=== PATIENT | female | born 1985 | race Hispanic/Latino ===

== ENCOUNTER 2023-12-06 03:09 | Emergency (ER) | payer OTHER ==
--- OUTSIDE RECORDS SUMMARY | 2023-12-06 03:14 | XMS REPORT | Continuity of Care Document ---
Author Name Unknown Address [address] [facility] [place] [address] [facility] Address [address] [facility] [place] [address] Care Team Providers Care Coin Box Collector Name Role Phone SLOANE GARIBAY Attending Clinician Unavailable WANDER PELAEZ Attending Clinician Unavailable LAB90 Attending Clinician Unavailable MD BRYNN Attending Clinician Unavailab ANTONIA Martinez Attending Clinician Unavailable [id number] Attending Clinician Unavailable LAB47 Attending Clinician Unavailable Payers Payer Name Policy Type Policy Number Effective Date Expirati on Date Source ANITA [facility] 2020 9 [id number] 00:00:00 Problems Condition Name Condition Details Condition Category Status Onset Date Resolution Date Last Treatment Date Treating Clinician Comments Source Vitamin D deficiency Vitamin D deficiency Disease Active 2021-06 00:00: 00 Neeta Rivas - Externa l Primary hypertensi on Primary hypertensi on Disease Active 2021-06 00:00: 00 Neeta Rivas - Externa l 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 recurrent major depressive disorder Disease Active 2021-06 00:00: 00 Neeta Rivas - Externa l Gastroesop hageal reflux disease without esophagiti s Gastroesop hageal reflux disease without esophagiti s Disease Active 2021-06 00:00: 00 Neeta Rivas - Externa l Social History Social Habit Start Date Stop Date Quantity Comments Source Sexual orientation 2022-05-06 10:43:01 Neeta Rivas - External Gender identity 2020-08-21 17:52:28 Identifies as female gender (finding) Neeta Rivas - External Alcoholic beverage intake 2023-11-19 00:00:00 2023-11-19 00:00:00 Current drinker of alcohol (finding) Neeta Rivas - External Alcohol intake 2023-08-12 00:00:00 2023-08-12 00:00:00 Current drinker of alcohol (finding) Neeta Rivas - External History of Social function 2023-03-02 00:00:00 2023-03-02 00:00:00 Neeta Rivas - External Tobacco use and exposure 2023-01-14 00:00:00 2023-01-14 00:00:00 Smokeless tobacco non-user Neeta Rivas - External Sex [birth year] at 1985 00:00:00 1985 00:[birth year]:00 F Neeta Rivas - External Smoking Status Start Date Stop Date Source Never smoked tobacco Neeta Rivas - External Medications Ordered Medication Name Filled Medication Name Start Date Stop Date Current Medication? Ordering Clinician Indication Dosage Frequency Signature (SIG) Comments Components Source hydroCHLORO thiazide 25 MG oral Tablet 11-18 00:00: 00 Yes [id number] 25mg Take 1 tablet (25 mg total) by mouth daily. Neeta boyd Losartan Potassium (COZAAR) 50 MG oral Tablet 11-18 00:00: 00 Yes [id number] 50mg Take 1 tablet (50 mg total) by mouth daily. Neeta boyd Tirzepatide -Weight Management 2.5 MG/0.5ML subcutaneou s Solution Auto-inject or 11-18 00:00: 00 Yes [id number] 2.5mg Inject 0.5 mL (2.5 mg total) into the skin once a week. Neeta boyd Azithromyci n (Zithromax) 500 MG oral Tablet 01-19 00:00: 00 02-10 00:00 :00 No [id number] 1000mg Take 2 tablets (1,000 mg total) by mouth once for 1 dose Neeta boyd Semaglutide -Weight Management (Wegovy) 1 MG/0.5ML subcutaneou s Solution Auto-inject or 18 00:00: 00 01-14 00:00 :00 No [id number] 1mg Inject 1 mg into the skin once a week Neeta boyd Cholecalcif karmen (Vitamin D3) 75 MCG (3000 UT) oral Tablet 10-05 00:00: 00 11-18 00:00 :00 No [id number] 1{tbl} Take 1 tablet by mouth daily Neeta boyd Semaglutide (1 mg/dose) 2 mg/1.5 mL SQ Solution Pen-Injecto r 10-01 00:00: 00 Yes [id number] 1mg Inject 1 mg into the skin once a week Neeta boyd Valsartan 80 MG oral Tablet 10-01 00:00: 00 11-18 00:00 :00 No [id number] 80mg Take 1 tablet (80 mg total) by mouth daily Neeta boyd hydroCHLORO thiazide 25 MG oral Tablet 10-01 00:00: 00 11-18 00:00 :00 No [id number] 25mg Take 1 tablet (25 mg total) by mouth daily Neeta boyd Valsartan 80 MG oral Tablet 09-22 00:00: 00 10-01 00:00 :00 No [id number] TAKE ONE (1) TABLET(S) BY MOUTH DAILY. Neeta boyd OZEMPIC (0.25 or 0.5 mg/dose) 2 mg/3 mL SQ Solution Pen-Injecto r 09-16 00:00: 00 10-01 00:00 :00 No Neeta boyd Semaglutide (0.25 or 0.5 mg/dose) 2 mg/1.5 mL SQ Solution Pen-Injecto r - 00:00: 10-01 00:00 :00 No [id number] .5mg Inject 0.5 mg into the skin once a week Neeta boyd Pantoprazol e Sodium 20 MG oral Tablet Delayed Response 08-20 00:00: 00 Yes [id number] TAKE ONE (1) TABLET(S) BY MOUTH DAILY. Neeta boyd hydroCHLORO thiazide 25 MG oral Tablet 08-20 00:00: 00 10-01 00:00 :00 No [id number] TAKE ONE (1) TABLET(S) BY MOUTH ONCE A DAY. Neeta boyd Valsartan 80 MG oral Tablet 08-05 00:00: 00 Yes [id number] 80mg Take 1 tablet (80 mg total) by mouth daily Neeta boyd Bupropion HCL XL 150 MG OR TB24 08-05 00:00: 00 Yes [id number] 300mg Take 2 tablets (300 mg total) by mouth every morning Neeta boyd Ondansetron (ZOFRAN) 4 MG oral TABLET DISPERSIBLE 08-05 00:00: 00 01-14 00:00 :00 No [id number] 4mg [id number] 3D Take 1 tablet (4 mg total) by mouth every 8 hours as needed for nausea Neeta boyd hydroCHLORO thiazide 25 MG oral Tablet 07-21 00:00: 00 Yes [id number] 25mg Take 1 tablet (25 mg total) by mouth daily Neeta boyd Magnesium 500 MG oral Capsule 07-21 00:00: 00 Yes Neeta boyd Vitamin D-Vitamin K (K2-D3 10,000) oral Capsule 07-21 00:00: 00 Yes Neeta boyd Valsartan 40 MG oral Tablet 30 00:00: 00 08-05 00:00 :00 No [id number] 40mg Take 1 tablet (40 mg total) by mouth daily Neeta boyd Semaglutide (0.25 or 0.5 mg/dose) 2 mg/1.5 mL SQ Solution Pen-Injecto r 07-08 00:00: 00 Yes [id number] .25mg Inject 0.25 mg into the skin once a week Neeta boyd Lisinopril 10 MG oral Tablet 07-08 00:00: 00 Yes [id number] 10mg Take 1 tablet (10 mg total) by mouth daily Neeta boyd Pantoprazol e Sodium 20 MG oral Tablet Delayed Response 2021-06 00:00: 00 Yes [id number] 20mg Take 1 tablet (20 mg total) by mouth daily Neeta boyd hydroCHLORO thiazide 25 MG oral Tablet 2021-06 00:00: 00 Yes [id number] 25mg Take 1 tablet (25 mg total) by mouth daily Neeta boyd Bupropion HCL XL 150 MG OR TB24 2021-06 00:00: 00 08-05 00:00 :00 No [id number] 300mg Take 2 tablets (300 mg total) by mouth every morning Neeta boyd Vitamin D, Ergocalcife rol, 1.25 MG (65919 UT) oral Capsule 2021-06 00:00: 00 Yes [id number] 32528V Take 1 capsule (50,000 units total) by mouth once a week Neeta boyd hydroCHLORO thiazide 12.5 MG oral Capsule 2021-06 00:00: 00 Yes [id number] 12.5mg Take 1 capsule (12.5 mg total) by mouth daily Neeta boyd Bupropion HCL XL 150 MG OR TB24 2021-06 00:00: 00 Yes [id number] 150mg Take 1 tablet (150 mg total) by mouth daily Neeta boyd Pantoprazol e Sodium 20 MG oral Tablet Delayed Response 2021-06 00:00: 00 Yes [id number] 20mg Take 1 tablet (20 mg total) by mouth daily Neeta boyd Amlodipine Besylate 10 MG oral Tablet 2020-06 00:00: 00 05-13 00:00 :00 No Neeta Seybold - Externa l Immunizations Ordered Immunization Name Filled Immunization Name Date Status Comments Source Influenza Virus Vaccine, age 6 months and up 2022 00:00:00 Completed Neeta Seybold - External Influenza Virus Vaccine, age 6 months and up 2022 00:00:00 Completed Neeta Seybold - External Influenza Virus Vaccine, age 6 months and up 2022 00:00:00 Completed Neeta Seybold - External Influenza Virus Vaccine, age 6 months and up 2022 00:00:00 Completed Neeta Seybold - External Influenza Virus Vaccine, age 6 months and up 2022 00:00:00 Completed Neeta Seybold - External Influenza Virus Vaccine, age 6 months and up 2022 00:00:00 Completed Neeta Seybold - External Influenza Virus Vaccine, age 6 months and up 2022 00:00:00 Completed Neeta Seybold - External Influenza Virus Vaccine, age 6 months and up 2022 00:00:00 Completed Neeta Seybold - External Influenza Virus Vaccine, Unspecified Formulation 2021-06-09 00:00:00 Completed Neeta Seybold - External Influenza Virus Vaccine, Unspecified Formulation 2021-06-09 00:00:00 Completed Neeta Seybold - External Influenza Virus Vaccine, Unspecified Formulation 2021-06-09 00:00:00 Completed Neeta Seybold - External Influenza Virus Vaccine, Unspecified Formulation 2021-06-09 00:00:00 Completed Neeta Seybold - External Influenza Virus Vaccine, Unspecified Formulation 2021-06-09 00:00:00 Completed Neeta Seybold - External Influenza Virus Vaccine, Unspecified Formulation 2021-06-09 00:00:00 Completed Neeta Seybold - External Influenza Virus Vaccine, Unspecified Formulation 2021-06-09 00:00:00 Completed Neeta Seybold - External Influenza Virus Vaccine, Unspecified Formulation 2021-06-09 00:00:00 Completed Neeta Seybold - External Covid-19 Vaccine Moderna (Spikevax), Mrna-lnp, Todd Protein, Pf 2020-09-20 00:00:00 Completed Neeta Seybold - External Covid-19 Vaccine Moderna (Spikevax), Mrna-lnp, Todd Protein, Pf 2020-09-20 00:00:00 [facility] (S[facility]), Mrna-lnp, Todd Protein, Pf 2020-09-20 00:00:00 Completed [facility] - External Covid-19 Vaccine Moderna (Spikevax), Mrna-lnp, Todd Protein, Pf 2020-09-20 00:00:00 Completed [facility] - External Covid-19 Vaccine Moderna (Spikevax), Mrna-lnp, Todd Protein, Pf 2020-09-20 00:00:00 Completed [facility] - External Covid-19 Vaccine Moderna (Spikevax), Mrna-lnp, Todd Protein, Pf 2020-09-20 00:00:00 Completed [facility] - External Covid-19 Vaccine Moderna (Spikevax), Mrna-lnp, Todd Protein, Pf 2020-09-20 00:00:00 Completed [facility] - External Covid-19 Vaccine Moderna (Spikevax), Mrna-lnp, Todd Protein, Pf 2020-09-20 00:00:00 Completed [facility] - External Covid-19 Vaccine Moderna (Spikevax), Mrna-lnp, Todd Protein, Pf 2020-09-20 00:00:00 Completed [facility] - External Covid-19 Vaccine Moderna (Spikevax), Mrna-lnp, Todd Protein, Pf 2020-08-23 00:00:00 Completed [facility] - External Covid-19 Vaccine Moderna (Spikevax), Mrna-lnp, Todd Protein, Pf 2020-08-23 00:00[facility]00 [facility] (S[facility]), Mrna-lnp, Todd Protein, Pf 2020-08-23 00:00:00 Completed Neeta Seold - External Covid-19 Vaccine Moderna (Spikevax), Mrna-lnp, Todd Protein, Pf 2020-08-23 00:00:00 [facility] Moderna (Spikevax), Mrna-lnp, Todd Protein, Pf 2020-08-23 00:00:00 Completed Neeta Seybold - External Covid-19 Vaccine Moderna (Spikevax), Mrna-lnp, Todd Protein, Pf 2020-08-23 00:00:00 Completed Neeta Seybold - External Covid-19 Vaccine Moderna (Spikevax), Mrna-lnp, Todd Protein, Pf 2020-08-23 00:00:00 Completed Neeta Seybold - External Covid-19 Vaccine Moderna (Spikevax), Mrna-lnp, Todd Protein, Pf 2020-08-23 00:00:00 Completed Neeta Seybold - External Covid-19 Vaccine Moderna (Spikevax), Mrna-lnp, Todd Protein, Pf 2020-08-23 00:00:00 Completed Neeta Seybold - External Influenza Virus Vaccine, age 6 months and up 2020-03-31 00:00:00 Completed Neeta Seybold Influenza Virus Vaccine, age 6 months and up 2020-03-31 00:00:00 Completed Neeta Seybold - External Influenza Virus Vaccine, age 6 months and up 2020-03-31 00:00:00 Completed Neeta Seybold - External Influenza Virus Vaccine, age 6 months and up 2020-03-31 00:00:00 Completed Neeta Seybold - External Influenza Virus Vaccine, age 6 months and up 2020-03-31 00:00:00 Completed Neeta Seybold - External Influenza Virus Vaccine, age 6 months and up 2020-03-31 00:00:00 Completed Neeta Seybold - External Influenza Virus Vaccine, age 6 months and up 2020-03-31 00:00:00 Completed Neeta Seybold - External Influenza Virus Vaccine, age 6 months and up 2020-03-31 00:00:00 Completed Neeta Seybold - External Influenza Virus Vaccine, age 6 months and up 2020-03-31 00:00:00 Completed Neeta Seybold - External PPD-Protein Derivative (Purified)- Tuberculin 2019-09-12 00:00:00 Completed Neeta Seybold - External PPD-Protein Derivative (Purified)- Tuberculin 2019-09-12 00:00:00 Completed Neeta Seybold - External PPD-Protein Derivative (Purified)- Tuberculin 2019-09-12 00:00:00 Completed Neeta Seybold - External PPD-Protein Derivative (Purified)- Tuberculin 2019-09-12 00:00:00 Completed Neeta Seybold - External PPD-Protein Derivative (Purified)- Tuberculin 2019-09-12 00:00:00 Completed Neeta Seybold - External PPD-Protein Derivative (Purified)- Tuberculin 2019-09-12 00:00:00 Completed Neeta Seybold - External PPD-Protein Derivative (Purified)- Tuberculin 2019-09-12 00:00:00 Completed Neeta Seybold - External PPD-Protein Derivative (Purified)- Tuberculin 2019-09-12 00:00:00 Completed Neeta Seybold PPD-Protein Derivative (Purified)- Tuberculin 2019-09-12 00:00:00 Completed Neeta Seybold - External Influenza Virus Vaccine, age 6 months and up 2019-03-24 00:00:00 Completed Neeta Seybold Influenza Virus Vaccine, age 6 months and up 2019-03-24 00:00:00 Completed Neeta Seybold - External Influenza Virus Vaccine, age 6 months and up 2019-03-24 00:00:00 Completed Neeta Seybold - External Influenza Virus Vaccine, age 6 months and up 2019-03-24 00:00:00 Completed Neeta Seybold - External Influenza Virus Vaccine, age 6 months and up 2019-03-24 00:00:00 Completed Neeta Seybold - External Influenza Virus Vaccine, age 6 months and up 2019-03-24 00:00:00 Completed Neeta Seybold - External Influenza Virus Vaccine, age 6 months and up 2019-03-24 00:00:00 Completed Neeta Seybold - External Influenza Virus Vaccine, age 6 months and up 2019-03-24 00:00:00 Completed Neeta Seybold - External Influenza Virus Vaccine, age 6 months and up 2019-03-24 00:00:00 Completed Neeta Seybold - External PPD-Protein Derivative (Purified)- Tuberculin Unknown Completed Neeta Seybold - External Influenza Virus Vaccine, age 6 months and up Unknown Completed Neeta Seybold - External Influenza Virus Vaccine, age 6 months and up Unknown Completed Neeta Seybold - External Covid-19 Vaccine Moderna (Spikevax), Mrna-lnp, Todd Protein, Pf Unknown Completed Neeta Castilloold - External Covid-19 Vaccine Moderna (Spikevax), Mrna-lnp, Todd Protein, Pf Unknown Completed Neeta Castilloold - External Influenza Virus Vaccine, Unspecified Formulation Unknown Completed Neeta Cuevaybold - External Influenza Virus Vaccine, age 6 months and up Unknown Completed Neeta Castilloold - External PPD-Protein Derivative (Purified)- Tuberculin Unknown Completed Neeta Cuevaybold - External Influenza Virus Vaccine, age 6 months and up Unknown Completed Neeta Cuevaybold - External Influenza Virus Vaccine, age 6 months and up Unknown Completed Neeta Castilloold - External Covid-19 Vaccine Moderna (Spikevax), Mrna-lnp, Todd Protein, Pf Unknown Completed Neeta Castilloold - External Covid-19 Vaccine Moderna (Spikevax), Mrna-lnp, Todd Protein, Pf Unknown Completed Neeta Castilloold - External Influenza Virus Vaccine, Unspecified Formulation Unknown Completed Neeta Castilloold - External Influenza Virus Vaccine, age 6 months and up Unknown Completed Neeta Castilloold - External Influenza Virus Vaccine, No Preserv, age 6 months and up Unknown Completed Neeta Cuevaybold - External Vital Signs Vital Name Observation Time Observation Value Comments S ource Systolic blood pressure 2023-11-19 16:00:00 162 mm[Hg] Neeta Castilloo ld - External Diastolic blood pressure 2023-11-19 16:00:00 100 mm[Hg] Neeta Castilloo ld - External Heart rate 2023-11-19 15:52:00 95 /min Itzel Castilloold - External Body temperature 2023-11-19 15:52:00 36.11 Jaquelin Neeta Cuevaybold - External Respiratory rate 2023-11-19 15:52:00 16 /min Neeta Castilloold - External Body height 2023-11-19 15:52:00 160 cm Ashley michel Seybold - External Body weight 2023-11-19 15:52:00 81.647 kg Ashley michel Seybold - External BMI 2023-11-19 15:52:00 31.89 kg/m2 Ashley michel Seybold - External Systolic blood pressure 2023-08-12 16:15:00 132 mm[Hg] Neeta Castilloo ld - External Diastolic blood pressure 2023-08-12 16:15:00 84 mm[Hg] Neeta Seybo ld - External Heart rate 2023-08-12 16:15:00 81 /min Kelse y Seybold - External Respiratory rate 2023-08-12 16:15:00 18 /min Neeta Seybold - External Body height 2023-08-12 16:15:00 160 cm Ashley ey Seybold - External Body weight 2023-08-12 16:15:00 82.373 kg Ashley ey Seybold - External BMI 2023-08-12 16:15:00 32.17 kg/m2 Ashley ey Seybold - External Systolic blood pressure 2023-02-24 15:44:00 151 mm[Hg] Neeta Seybo ld - External Diastolic blood pressure 2023-02-24 15:44:00 100 mm[Hg] Neeta Seybo ld - External Heart rate 2023-02-24 15:44:00 79 /min Kelse y Seybold - External Respiratory rate 2023-02-24 15:44:00 18 /min Neeta Seybold - External Body height 2023-02-24 15:44:00 160 cm Ashley ey Seybold - External Body weight 2023-02-24 15:44:00 75.433 kg Ashley ey Seybold - External BMI 2023-02-24 15:44:00 29.46 kg/m2 Ashley ey Seybold - External Systolic blood pressure 2023-02-10 20:06:00 118 mm[Hg] Neeta Seybo ld - External Diastolic blood pressure 2023-02-10 20:06:00 84 mm[Hg] Neeta Seybo ld - External Heart rate 2023-02-10 20:06:00 98 /min Mazinse y Seybold - External Respiratory rate 2023-02-10 20:06:00 18 /min Neeta Seybold - External Body height 2023-02-10 20:06:00 160 cm Ashley ey Seybold - External Body weight 2023-02-10 20:06:00 76.386 kg Ashley ey Seybold - External BMI 2023-02-10 20:06:00 29.83 kg/m2 Ashley ey Seybold - External Systolic blood pressure 2023-01-14 14:48:00 145 mm[Hg] Neeta Seybo ld - External Diastolic blood pressure 2023-01-14 14:48:00 91 mm[Hg] Neeta Seybo ld - External Heart rate 2023-01-14 14:48:00 95 /min Kelse y Seybold - External Respiratory rate 2023-01-14 14:48:00 16 /min Neeta Seybold - External Body height 2023-01-14 14:48:00 160 cm Ashley ey Seybold - External Body weight 2023-01-14 14:48:00 75.841 kg Ashley ey Seybold - External BMI 2023-01-14 14:48:00 29.62 kg/m2 Ashley ey Seybold - External Systolic blood pressure 2022-10-01 18:20:00 126 mm[Hg] Neeta Seybo ld - External Diastolic blood pressure 2022-10-01 18:20:00 84 mm[Hg] Neeta Seybo ld - External Heart rate 2022-10-01 18:20:00 100 /min Kelse y Seybold - External Body temperature 2022-10-01 18:20:00 36.56 Jaquelin Neeta Seybold - External Respiratory rate 2022-10-01 18:20:00 14 /min Neeta Seybold - External Body height 2022-10-01 18:20:00 160 cm Ashley ey Seybold - External Body weight 2022-10-01 18:20:00 77.565 kg Ashley ey Seybold - External BMI 2022-10-01 18:20:00 30.29 kg/m2 Ashley ey Seybold - External Systolic blood pressure 2022-08-05 19:04:00 127 mm[Hg] Neeta Seybo ld - External Diastolic blood pressure 2022-08-05 19:04:00 82 mm[Hg] Neeta Seybo ld - External Heart rate 2022-08-05 19:04:00 90 /min Kelse y Seybold - External Body temperature 2022-08-05 19:04:00 36.72 Jaquelin Neeta Seybold - External Respiratory rate 2022-08-05 19:04:00 13 /min Neeta Seybold - External Body height 2022-08-05 19:04:00 160 cm Ashley ey Seybold - External Body weight 2022-08-05 19:04:00 78.472 kg Ashley ey Seybold - External BMI 2022-08-05 19:04:00 30.65 kg/m2 Ashley ey Seybold - External Oxygen saturation in Arterial blood by Pulse oximetry 2022-08-05 19:04:00 99 /min Neeta Seybo ld - External Systolic blood pressure 2022-07-08 19:02:00 147 mm[Hg] Neeta Seybo ld - External Diastolic blood pressure 2022-07-08 19:02:00 90 mm[Hg] Neeta Seybo ld - External Heart rate 2022-07-08 19:02:00 102 /min Kelse y Seybold - External Body temperature 2022-07-08 19:02:00 37 Jaquelin Neeta Seybold - External Respiratory rate 2022-07-08 19:02:00 14 /min Neeta Seybold - External Body height 2022-07-08 19:02:00 160 cm Ashley ey Seybold - External Body weight 2022-07-08 19:02:00 78.744 kg Ashley ey Seybold - External BMI 2022-07-08 19:02:00 30.75 kg/m2 Ashley ey Seybold - External Oxygen saturation in Arterial blood by Pulse oximetry 2022-07-08 19:02:00 99 /min Neeta Seybo ld - External Systolic blood pressure 2022-06-10 18:52:00 130 mm[Hg] Neeta Seybo ld - External Diastolic blood pressure 2022-06-10 18:52:00 90 mm[Hg] Neeta Seybo ld - External Heart rate 2022-06-10 18:52:00 87 /min Kelse y Seybold - External Body temperature 2022-06-10 18:52:00 36.61 Jaquelin Neeta Seybold - External Respiratory rate 2022-06-10 18:52:00 14 /min Neeta Seybold - External Body height 2022-06-10 18:52:00 160 cm Ashley ey Seybold - External Body weight 2022-06-10 18:52:00 77.111 kg Ashley ey Seybold - External BMI 2022-06-10 18:52:00 30.11 kg/m2 Ashley ey Seybold - External Oxygen saturation in Arterial blood by Pulse oximetry 2022-06-10 18:52:00 99 /min Neeta Seybo ld - External Systolic blood pressure 2022 18:57:00 138 mm[Hg] Neeta Seybo ld - External Diastolic blood pressure 2022 18:57:00 89 mm[Hg] Neeta Seybo ld - External Heart rate 2022 18:57:00 98 /min Mazinse y Seybold - External Body temperature 2022 18:57:00 36.67 Jaquelin Neeta Seybold - External Respiratory rate 2022 18:57:00 14 /min Neeta Seybold - External Body height 2022 18:57:00 160 cm Ashley ey Seybold - External Body weight 2022 18:57:00 77.111 kg Ashley ey Seybold - External BMI 2022 18:57:00 30.11 kg/m2 Ashley ey Seybold - External Oxygen saturation in Arterial blood by Pulse oximetry 2022 18:57:00 99 /min Neeta Seybo ld - External Systolic blood pressure 2021-08-28 20:11:00 160 mm[Hg] Neeta Seybo ld Diastolic blood pressure 2021-08-28 20:11:00 90 mm[Hg] Neeta Seybo ld Heart rate 2021-08-28 20:11:00 113 /min Kelse y Seybold Respiratory rate 2021-08-28 20:11:00 16 /min Neeta Seybold Body height 2021-08-28 20:11:00 160 cm Ashley ey Seybold Body weight 2021-08-28 20:11:00 72.938 kg Ashley ey Seybold BMI 2021-08-28 20:11:00 28.48 kg/m2 Ashley ey Seybold Oxygen saturation in Arterial blood by Pulse oximetry 2021-08-28 20:11:00 98 /min Neeta Castilloo ld Encounters Start Date/Time End Date/Time Encounter Type Admission Type Attending [facility] Facility Care Department Encounter ID Source 2024-02-12 09:15:00 2024-02-12 09:15:00 Outpatient GARIBAYSLOANE MEDRANO NEETA MORTENSEN [id number] [facility] 2023-12-31 13:30:00 2023-12-31 13:30:00 Outpatient WANDER PELAEZ NEETA MORTENSEN [id number] [facility] 2023-11-19 11:50:00 2023-11-19 11:50:00 Outpatient LAB90 [facility]ENS[facility] [id number] [facility] 2023-11-19 11:00:00 2023-11-19 11:00:00 Outpatient WANDER PELAEZ NE[facility] MORTENS[facility] [id number] [facility] 2023-11-19 00:00:00 2023-11-19 00:00:00 Outpatient HUNDSascha WANDER MORTENSEN [id number] [facility] 2023-08-24 00:00:00 2023-08-24 00:00:00 Outpatient MD NEETA JOSHUA [id number] [facility] 2023-08-12 10:30:00 2023-08-12 10:30:00 Outpatient GARIBAYSLOANE MEDRANO [id number] [facility] 2023-05-06 00:00:00 2023-05-06 00:00:00 Outpatient ANTONIA BHAKTA [id number] [facility] 2023-03-02 00:00:00 2023-03-02 00:00:00 Outpatient MD NEETA JOSHUA [id number] [facility] 2023-02-24 10:45:00 2023-02-24 10:45:00 Outpatient SLOANE GARIBAY [id number] [facility] 2023-02-10 15:15:00 2023-02-10 15:15:00 Outpatient SLOANE GARIBAY [id number] [facility] 2023-01-19 00:00:00 2023-01-19 00:00:00 Outpatient SLOANE GARIBAY [id number] [facility] 2023-01-14 10:00:00 2023-01-14 10:00:00 Outpatient GARIBAYSLOANE MEDRANO NEETA MORTENSEN [id number] [facility] 2022-11-21 15:30:00 2022-11-21 15:30:00 Outpatient GARIBAYSLOANE MEDRANO NEETA MORTENSEN [id number] Neeta Ev[facility] 2022-11-10 00:00:00 2022-11-10 00:00:00 Outpatient MD NEETA JOSHUA [id number] [facility] 2022-11-05 08:45:00 2022-11-05 08:45:00 Outpatient GARIBAY, SLOANE MORTENSEN [id number] [facility] 2022-11-05 00:00:00 2022-11-05 00:00:00 Outpatient WANDER PELAEZ [id number] [facility] 2022-10-05 00:00:00 2022-10-05 00:00:00 Outpatient WANDER PELAEZ [id number] [facility] 2022-10-01 14:15:00 2022-10-01 14:15:00 Outpatient LAB90 NEETA MORTENSEN [id number] [facility] 2022-10-01 13:30:00 2022-10-01 13:30:00 Outpatient WANDER PELAEZ [id number] [facility] 2022-09-11 00:00:00 2022-09-11 00:00:00 Outpatient WANDER PELAEZ [id number] Neeta Seybold 2022-09-09 00:00:00 2022-09-09 00:00:00 Outpatient WANDER PELAEZ [id number] [facility] 2022-08-20 00:00:00 2022-08-20 00:00:00 Outpatient ANTONIA BHAKTA [id number] [facility] 2022-08-20 00:00:00 2022-08-20 00:00:00 Outpatient WANDER PELAEZ [id number] Neeta Seybold 2022-08-05 13:00:00 2022-08-05 13:00:00 Outpatient WANDER PELAEZ NEETA [id number] Neeta Rivas 2022-07-21 00:00:00 2022-07-21 00:00:00 Outpatient ANTONIA BHAKTA NEETA [id number] Neeta Rivas 2022-07-20 00:00:00 2022-07-20 00:00:00 Outpatient WANDER PELAEZ NEETA MORTENSEN [id number] Neeta Rivas 2022-07-08 13:00:00 2022-07-08 13:00:00 Outpatient WANDER PELAEZ NEETA [id number] Neeta Rivas 2022-06-10 13:00:00 2022-06-10 13:00:00 Outpatient WANDER PELAEZ NEETA MORTENSEN [id number] Neeta Rivas 2022-05-16 00:00:00 2022-05-16 00:00:00 Outpatient WANDER PELAEZ NEETA MORTENSEN [id number] Neeta Rivas 2022 13:45:00 2022 13:45:00 Outpatient LAB90 NEETA NEETA [id number] Neeta Rivas 2022 13:00:00 2022 13:00:00 Outpatient WANDER PELAEZ NEETA [id number] Neeta Rivas 2021-08-28 17:10:00 2021-08-28 17:10:00 Outpatient VLU08-MQW NEETA NEETA [id number] Neeta Rivas 2021-08-28 15:00:00 2021-08-28 15:00:00 Outpatient LAB47 NEETA MORTENSEN [id number] Neeta Rivas 2021-08-28 14:15:00 2021-08-28 14:15:00 Office Visit SLOANE GARIBAY 1.2.840.114 350.1.13.13 1.2.7.2.686 [id number] Neeta Evelyn Notes Date/Time Note Provider Source 2023-11-19 10:59:44 2157-29-15U82:59:44F ormatting of this note is different from the original.Chief ComplaintPatient presents withWeight ProblemDiscuss weight managementBlood PressureElevated blood pressure. She has not taken blood pressure medication in over a year. She states that she feels very fatigued when [place] [address]-9Ulsid ZytuEK7228-95-56F21:01:30Nurse NoteTXT1.2.840.016830.1.13.131.2.7.2. 602132|[id number] for patient udvk26505-3Fwcew NoteLNNARRATIVEFormatted C-CDA narrative text[id number] 5788-32-88X27:01:301.2.840.528105.1.7 2.3.15|1.2.840.320618.1.13.131.2.7.2. [id number] [facility] 2023-08-12 10:15:45 6492-08-91Z06:15:45F ormatting of this note is different from the original.Chief ComplaintPatient presents withOTHERRepeat [place] [address]-9Jrlbd OpetOD8304-15-15V75:16:10Nurse NoteTXT1.2.840.627932.1.13.131.2.7.2. 673285|[id number] for patient hcfa55359-3Amxdd NoteLNNARRATIVEFormatted C-CDA narrative text[id number] 2058-50-90O03:16:101.2.840.968346.1.7 2.3.15|1.2.840.807940.1.13.131.2.7.2. [id number] [facility] 2023-02-24 10:45:02 7097-56-50Q88:45:02F ormatting of this note is different from the original.Chief Complaint Patient presents with Colposcopy Alexander Santana is here today for a colposcopy procedure. Patient's last menstrual period was 01/27/2023 (exact date). Control: Bilateral salpingectomyLast Pap date: 01/14/2023 Colpo: Date: 02/24/2023 Colpo Consent Signed: YesColpvalerie Literature Given: [place] [address]-9Ycmyu FqjuDD1940-01-99M38:45:54Nurse NoteTXT1.2.840.046043.1.13.131.2.7.2. 429371|[id number] for patient nlqm36801-7Oxqdm NoteLNWinnebago [facility] [facility] [id number] 0897-44-39S57:45:541.2.840.950142.1.7 2.3.15|1.2.840.502002.1.13.131.2.7.2. [id number] [facility] 2023-02-10 15:07:12 5930-36-10Y72:07:12F ormatting of this note is different from the original.Chief Complaint Patient presents with Screen For Std[place] [address]-5Jfjdh KgemZC3772-79-93T44:07:46Nurse NoteTXT1.2.840.137166.1.13.131.2.7.2. 255853|[id number] for patient ewql82432-7Xsafo NoteLNWinnebago Mental Health Institute[facility] [facility].[id number] 4251-26-81F23:07:461.2.840.836453.1.7 2.3.15|1.2.840.386988.1.13.131.2.7.2. [id number] [facility] 2023-01-14 09:47:37 5854-76-87S28:47:37F ormatting of this note is different from the original.Chief Complaint Patient presents with Well Woman Exam Alexander Interiano is here today for her Well Woman Exam.The patient's last pap smear was 08/28/2021 and her last mammogram was never. 69539-7Cxwae DpkaTB3031-66-84G66:52:51Nurse NoteTXT1.2.840.389192.1.13.131.2.7.2. 495381|[id number] for patient [facility] [facility].[id number] 8805-94-93H14:52:511.2.840.047878.1.7 2.3.15|1.2.840.418819.1.13.131.2.7.2. [id number] [facility]"
[2023-12-06] MEDS ORDERED: ONDANSETRON 4 MG/2 ML VIAL ONE (03:21)
[2023-12-06] MEDS ORDERED: NA CHLORIDE 0.9% 1,000 ML ONE (03:21)
[2023-12-06] MEDS ORDERED: MORPHINE 4 MG/ML SYR ONE (03:21)
[2023-12-06] MEDS ORDERED: FAMOTIDINE 20 MG/2 ML VIAL IV ONE (03:21)
[2023-12-06 03:49] LABS: Absolute Eosinophils 0.1 K/uL (0-0.5); Absolute Monocytes 0.4 K/uL (0.1-1.3); Absolute Neutrophil 6.1 K/uL (1.8-8.0); Basophils % 0.1 % (0-1.3); Eosinophils % 1.3 % (0-4.4); Hematocrit 38.3 % (36.0-45.0); Hemoglobin 13.4 g/dL (12.0-15.0); Lymphocytes % 23.1 % (15.3-44.8); MCH 30.8 pg (27.0-35.0); MCHC 34.8 g/dL (32.0-36.0); MCV 88.4 fL (80-100); MPV 7.5 fL (7.6-11.3); Monocytes % 4.9 % (3.3-12.3); Neutrophils % 70.6 % (41.7-73.7); Nucleated Red Blood Cells % 0.4 % (0-0); Platelets 431 thou/uL (152-406); RBC Red Blood Cell Count 4.34 M/uL (3.86-4.86); Red Cell Distribution Width 12.4 % (12.1-15.2)
[2023-12-06 03:59] LABS: Albumin 3.8 g/dL (3.4-5.0); Albumin/Globulin Ratio 0.7 (1.1-1.8); Anion Gap 9.2 mEq/L (5.0-15.0); Bilirubin Total 0.5 mg/dL (0.2-1.0); Globulin 5.1 g/dL (2.3-3.5); Potassium 3.2 mEq/L (3.5-5.1); Protein, Total 8.9 g/dL (6.4-8.2)
[2023-12-06] MEDS ORDERED: NS KCL 20MEQ 1,000 ML IV ONE (04:15)
[2023-12-06] MEDS ORDERED: PROMETHAZINE INJ 25 MG/ML AMP ONE ×2 (04:15→05:53)
[2023-12-06 06:17] LABS: Specific Gravity > 1.030 (1.005-1.030)
--- NOTE | 2023-12-06 06:18 | ER ---
Nurse's Notes [facility] Name: Sahra Santana Age: 38 yrs Sex: Female : 1985 Arrival Date: 12/06/2023 Time: 03:09 Bed 7 Private MD: Diagnosis: Vomiting;Diarrhea, unspecified;Abdominal pain, Generalized;Adverse effect of other drugs, medicaments and biological substances-MONJARO Presentation: 12/05 03:24 Chief complaint: Patient states: I started taking monjaro recently. Thursday started bm8 having liquid diarrhea Thursday had N/V/D again. Coronavirus screen: At this time, the client does not indicate any symptoms associated with coronavirus-19. Ebola Screen: Patient negative for fever greater than or equal to 101.5 degrees Fahrenheit, and additional compatible Ebola Virus Disease symptoms Patient denies exposure to infectious person. Patient denies travel to an Ebola-affected area in the 21 days before illness onset. No symptoms or risks identified at this time. Initial Sepsis Screen: Does the patient meet any 2 criteria? No. Patient's initial sepsis screen is negative. Does the patient have a suspected source of infection? No. Patient's initial sepsis screen is negative. Risk Assessment: Do you want to hurt yourself or someone else? Patient reports no desire to harm self or others. Onset of symptoms was December 02, 2023. 03:24 Method Of Arrival: Ambulatory bm8 03:24 Acuity: JOSE E 3 bm8 Triage Assessment: 03:27 General: Appears in no apparent distress. comfortable, Behavior is calm, cooperative, bm8 appropriate for age. Pain: Complains of pain in abdomen Pain does not radiate. Pain currently is 3 out of 10 on a pain scale. Quality of pain is described as aching, crampy. EENT: No deficits noted. No signs and/or symptoms were reported regarding the EENT system. Neuro: No deficits noted. Level of Consciousness is awake, alert, obeys commands, Oriented to person, place, time, situation. Cardiovascular: Denies chest pain, lightheadedness, shortness of breath, Capillary refill < 3 seconds Patient's skin is warm and dry. Respiratory: No deficits noted. Airway is patent Trachea midline Respiratory effort is even, unlabored, Respiratory pattern is regular, symmetrical. GI: Abdomen is flat, non-distended, Bowel sounds present X 4 quads. Reports upper abdominal pain, cramping, diarrhea, nausea, Pain is 3 out of 10 on a pain scale. vomiting, since last thursday. : No deficits noted. No signs and/or symptoms were reported regarding the genitourinary system. Derm: No signs and/or symptoms reported regarding the dermatologic system. Musculoskeletal: No signs and/or symptoms reported regarding the musculoskeletal system. 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 - Infectious Disease History:: Denies. - Social history:: Smoking status: Patient denies any tobacco usage or history of. Screenin: [facility] ED Fall Risk Assessment (Adult) History of falling in the last 3 months, bm8 including since admission No falls in past 3 months (0 pts) Confusion or Disorientation No (0 pts) Intoxicated or Sedated No (0 pts) Impaired Gait No (0 pts) Mobility Assist Device Used No (0 pt) Altered Elimination No (0 pt) Score/Fall Risk Level 0 - 2 = Low Risk Oriented to surroundings, Maintained a safe environment, Educated pt \T\ family on fall prevention, incl call for assistance when getting out of bed. Abuse screen: Denies threats or abuse. Nutritional screening: No deficits noted. Tuberculosis screening: No symptoms or risk factors identified. Assessment: 03:31 Reassessment: see triage note. bm8 04:54 Reassessment: Patient and/or family updated on plan of care and expected duration. Pain tm6 level reassessed. Patient is alert, oriented x 3, equal unlabored respirations, skin warm/dry/pink. 04:55 Reassessment: Patient appears in no apparent distress at this time. Patient and/or bm8 family updated on plan of care and expected duration. Pain level reassessed. Patient is alert, oriented x 3, equal unlabored respirations, skin warm/dry/pink. GI: Abdomen is flat, non-distended, Bowel sounds present X 4 quads. Abd is soft and non tender X 4 quads. Reports diarrhea, nausea. 05:31 Reassessment: Patient and/or family updated on plan of care and expected duration. Pain tm6 level reassessed. Patient is alert, oriented x 3, equal unlabored respirations, skin warm/dry/pink. 06:44 Reassessment: Patient appears in no apparent distress at this time. Patient and/or bm8 family updated on plan of care and expected duration. Pain level reassessed. Patient is alert, oriented x 3, equal unlabored respirations, skin warm/dry/pink. pt has made multiple trips to latrine to relieve self. still having bouts of diarhhea. GI: Abdomen is flat, non-distended, Last BM at 06:44. Bowel sounds present X 4 quads. Abd is soft and non tender X 4 quads. Vital Signs: 03:24 BP 185 / 139; Pulse 127; Resp 18; Temp 98.2; Pulse Ox 99% ; Weight 79.83 kg; Height 5 bm8 ft. 3 in. ; Pain 3/10; 03:31 BP 174 / 109; Pulse 100; Resp 18; Temp 98.2; Pulse Ox 100% on R/A; Pain 3/10; bm8 04:53 BP 183 / 108; Pulse 92; Pulse Ox 97% on R/A; Pain 0/10; tm6 05:31 BP 165 / 106; Pulse 90; Pulse Ox 99% on R/A; tm6 06:44 BP 151 / 96; Pulse 99; Resp 18; Temp 98.3; Pulse Ox 99% on R/A; Pain 0/10; bm8 03:24 Body Mass Index 31.18 (79.83 kg, 160.02 cm) bm8 03:24 Pain Scale: Adult bm8 03:31 Pain Scale: Adult bm8 04:53 Pain Scale: Adult tm6 06:44 Pain Scale: Adult bm8 [place] Coma Score: 03:31 Eye Response: spontaneous(4). Motor Response: obeys commands(6). Verbal Response: bm8 oriented(5). Total: 15. 06:44 Eye Response: spontaneous(4). Motor Response: obeys commands(6). Verbal Response: bm8 oriented(5). Total: 15. ED Course: 03:12 Patient arrived in ED. jj6 03:16 Mario Burnett MD is Attending Physician. efrem 03:23 Ar Sheridan, RN is Primary Nurse. bm8 03:27 Triage completed. bm8 03:27 Arm band placed on right wrist. bm8 03:31 Patient has correct armband on for positive identification. Bed in low position. Call bm8 light in reach. Side rails up X 1. Adult w/ patient. Client placed on continuous cardiac and pulse oximetry monitoring. NIBP monitoring applied. Pulse ox on. NIBP on. Door closed. Noise minimized. Visitors limited. Warm blanket given. Verbal reassurance given. Head of bed elevated. 03:31 No provider procedures requiring assistance completed. Initial lab(s) drawn, by ED bm8 staff, sent to lab. Inserted saline lock: 22 gauge in right antecubital area, using aseptic technique. Blood collected. 03:46 CBC with Diff Sent. tm6 03:46 CMP Sent. tm6 03:46 Lipase Sent. tm6 04:41 CT Abd/Pelvis - IV Contrast Only In Process Unspecified. EDMS 06:17 Gin Taveras MD is Referral Physician. [facility] 06:44 Provided Education on: post er care, need to stop new medication.. bm8 06:44 IV discontinued, intact, bleeding controlled, No redness/swelling at site. Pressure bm8 dressing applied. Administered Medications: 03:37 Drug: NS 0.9% IV 1000 ml IV at 1 bolus Per protocol; 1000 mL bolus Route: IV; Rate: 1 bm8 bolus; Site: right antecubital; 06:52 Follow up: Response: No adverse reaction; IV Status: Completed infusion; IV Intake: bm8 1000ml 03:37 Drug: Famotidine IVP 20 mg IVP once; dilute with 10 mL 0.9% NaCl; give over 2 minutes bm8 Route: IVP; Site: right antecubital; 05:58 Follow up: Response: No adverse reaction bm8 03:38 Drug: Ondansetron IVP 4 mg IVP once; over 2 minutes Route: IVP; Site: right antecubital;bm8 05:59 Follow up: Response: No adverse reaction bm8 03:38 Drug: morphine IVP or IV 4 mg IVP once over 4 mins Route: IVP; Infused Over: 4 mins; bm8 Site: right antecubital; 05:59 Follow up: Response: No adverse reaction bm8 04:22 Drug: NS 0.9% with KCl IV 20 mEq/L 1000 ml IV at 500 ml/hr continuous Route: IV; Rate: tm6 500 ml/hr; Site: right antecubital; 06:51 Follow up: Response: No adverse reaction; IV Status: Completed infusion; IV Intake: bm8 1000ml 04:22 Drug: Promethazine IVP 12.5 mg IVP once Route: IVP; Site: right antecubital; tm6 05:58 Follow up: Response: No adverse reaction bm8 05:58 Drug: Promethazine IVP 12.5 mg IVP once Route: IVP; Site: right antecubital; bm8 06:52 Follow up: Response: No adverse reaction bm8 Medication: 03:31 VIS not applicable for this client. bm8 Intake: 06:51 IV: 1000ml; Total: 1000ml. bm8 06:52 IV: 1000ml; Total: 2000ml. bm8 Outcome: 06:17 Discharge ordered by . efrem 06:44 Discharged to home ambulatory, bm8 06:44 Condition: stable 06:44 Discharge instructions given to patient, family, Instructed on discharge instructions, follow up and referral plans. no drinking with medication, medication usage, safety practices, Demonstrated understanding of instructions, follow-up care, medications, 06:51 Prescriptions given X 3, bm8 06:52 Patient left the ED. bm8 Signatures: Dispatcher [employer] EDSD Mario Burnett MD MD cha Jeffries, Jennifer jj6 Lola Jay RN RN tm6 Ar Sheridan RN RN bm8
--- NOTE | 2023-12-06 06:18 | EDPHYS ---
Physician Documentation [facility] Name: Sahra Santana Age: 38 yrs Sex: Female : 1985 Arrival Date: 12/06/2023 Time: 03:09 Bed 7 Private MD: ALLISON Physician Mario Burnett HPI: 12/05 04:21 This 38 yrs old Female presents to ER via Ambulatory with complaints of efrem Abdominal Pain, Diarrhea. 04:21 The patient presents to the emergency department with nausea, vomiting, diarrhea, efrem abdominal pain, of the right upper quadrant, left upper quadrant, right lower quadrant and left lower quadrant. Onset: The symptoms/episode began/occurred 4 day(s) ago. Possible causes: monjaro. The symptoms are aggravated by nothing. The symptoms are alleviated by nothing. Associated signs and symptoms: Pertinent positives: abdominal pain, nausea, vomiting. Severity of symptoms: At their worst the symptoms were mild moderate in the emergency department the symptoms are unchanged. The patient has experienced similar episodes in the past, several times. 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 - Infectious Disease History:: Denies. - Social history:: Smoking status: Patient denies any tobacco usage or history of. ROS: 04:22 Constitutional: Negative for fever, chills, and weight loss, Eyes: Negative for injury, efrem pain, redness, and discharge, ENT: Negative for injury, pain, and discharge, Neck: Negative for injury, pain, and swelling, Cardiovascular: Negative for chest pain, palpitations, and edema, Respiratory: Negative for shortness of breath, cough, wheezing, and pleuritic chest pain, Back: Negative for injury and pain, : Negative for injury, bleeding, discharge, and swelling, MS/Extremity: Negative for injury and deformity, Skin: Negative for injury, rash, and discoloration, Neuro: Negative for headache, weakness, numbness, tingling, and seizure, Psych: Negative for depression, anxiety, suicide ideation, homicidal ideation, and hallucinations, Allergy/Immunology: Negative for hives, rash, and allergies, Endocrine: Negative for neck swelling, polydipsia, polyuria, polyphagia, and marked weight changes, Hematologic/Lymphatic: Negative for swollen nodes, abnormal bleeding, and unusual bruising, 04:22 Abdomen/GI: Positive for abdominal pain, nausea and vomiting, diarrhea, abdominal cramps, Exam: 04:22 Constitutional: This is a well developed, well nourished patient who is awake, alert, efrem and in no acute distress. Head/Face: Normocephalic, atraumatic. Eyes: Pupils equal round and reactive to light, extra-ocular motions intact. Lids and lashes normal. Conjunctiva and sclera are non-icteric and not injected. Cornea within normal limits. Periorbital areas with no swelling, redness, or edema. ENT: Nares patent. No nasal discharge, no septal abnormalities noted. Tympanic membranes are normal and external auditory canals are clear. Oropharynx with no redness, swelling, or masses, exudates, or evidence of obstruction, uvula midline. Mucous membranes moist. Neck: Trachea midline, no thyromegaly or masses palpated, and no cervical lymphadenopathy. Supple, full range of motion without nuchal rigidity, or vertebral point tenderness. No Meningismus. Chest/axilla: Normal chest wall appearance and motion. Nontender with no deformity. No lesions are appreciated. Cardiovascular: Regular rate and rhythm with a normal S1 and S2. No gallops, murmurs, or rubs. Normal PMI, no JVD. No pulse deficits. Respiratory: Lungs have equal breath sounds bilaterally, clear to auscultation and percussion. No rales, rhonchi or wheezes noted. No increased work of breathing, no retractions or nasal flaring. Back: No spinal tenderness. No costovertebral tenderness. Full range of motion. Skin: Warm, dry with normal turgor. Normal color with no rashes, no lesions, and no evidence of cellulitis. MS/ Extremity: Pulses equal, no cyanosis. Neurovascular intact. Full, normal range of motion. Neuro: Awake and alert, GCS 15, oriented to person, place, time, and situation. Cranial nerves II-XII grossly intact. Motor strength 5/5 in all extremities. Sensory grossly intact. Cerebellar exam normal. Normal gait. 04:22 ECG was reviewed by the Attending Physician. 04:22 Abdomen/GI: Inspection: distension, that is mild, Bowel sounds: normal, Palpation: mild abdominal tenderness, in the right upper quadrant, left upper quadrant, right lower quadrant and left lower quadrant, Liver: no appreciated palpable abnormalities, Hernia: not appreciated, Vital Signs: 03:24 BP 185 / 139; Pulse 127; Resp 18; Temp 98.2; Pulse Ox 99% ; Weight 79.83 kg; Height 5 bm8 ft. 3 in. ; Pain 3/10; 03:31 BP 174 / 109; Pulse 100; Resp 18; Temp 98.2; Pulse Ox 100% on R/A; Pain 3/10; bm8 04:53 BP 183 / 108; Pulse 92; Pulse Ox 97% on R/A; Pain 0/10; tm6 05:31 BP 165 / 106; Pulse 90; Pulse Ox 99% on R/A; tm6 06:44 BP 151 / 96; Pulse 99; Resp 18; Temp 98.3; Pulse Ox 99% on R/A; Pain 0/10; bm8 03:24 Body Mass Index 31.18 (79.83 kg, 160.02 cm) bm8 03:24 Pain Scale: Adult bm8 03:31 Pain Scale: Adult bm8 04:53 Pain Scale: Adult tm6 06:44 Pain Scale: Adult bm8 [place] Coma Score: 03:31 Eye Response: spontaneous(4). Motor Response: obeys commands(6). Verbal Response: bm8 oriented(5). Total: 15. 06:44 Eye Response: spontaneous(4). Motor Response: obeys commands(6). Verbal Response: bm8 oriented(5). Total: 15. MDM: 03:21 Patient medically screened. efrem 04:24 Differential diagnosis: Nonspecific abd pain, gastritis, pancreatitis, diverticulitis, efrem viral gastroenteritis, gastroenteritis, bowel obstruction, diverticulitis, gastritis, gastroesophageal reflux disease, Hepatitis, myocardia ischemia or infarction, non-specific abd pain, pancreatitis, urinary tract infection. Data reviewed: vital signs, nurses notes, lab test result(s), EKG, radiologic studies, CT scan, plain films. Consideration of Admission/Observation Escalation of care including admission/observation considered. I considered the following discharge prescriptions or medication management in the emergency department Medications were administered in the Emergency Department. See MAR. Independent interpretation of the following test(s) in the Emergency Department EKG: See my EKG interpretation above. Test considered but Not performed: Ultrasound no abd usg. Historians other than the Patient: pt well informed. Care significantly affected by the following chronic conditions: Hypertension, Obesity. Counseling: I had a detailed discussion with the patient and/or guardian regarding the historical points, exam findings, and any diagnostic results supporting the discharge/admit diagnosis, lab results, radiology results, the need for outpatient follow up, for definitive care, a family practitioner, a freezer assistant. 12/05 03:17 Order name: CBC with Diff; Complete Time: 03:58 [facility] 12/05 03:17 Order name: CMP; Complete Time: 04:12 [facility] 12/05 03:17 Order name: Lipase; Complete Time: 04:12 [facility] 12/05 03:17 Order name: Test, Urine [facility] 12/05 03:17 Order name: Urinalysis w/ reflexes [facility] 12/05 03:17 Order name: CT Abd/Pelvis - IV Contrast Only [facility] 12/05 03:17 Order name: IV Saline Lock; Complete Time: 03:37 [facility] 12/05 03:17 Order name: Labs collected and sent; Complete Time: 03:37 [facility] EC:22 Rate is 65 beats/min. Rhythm is regular. QRS [place] is Normal. SD interval is normal. QRS efrem interval is normal. QT interval is normal. No Q waves. T waves are Normal. Clinical impression: NSR w/ Non-specific ST/T Changes and No evidence of ischemia. Interpreted by me. Reviewed by me. Administered Medications: 03:37 Drug: NS 0.9% IV 1000 ml IV at 1 bolus Per protocol; 1000 mL bolus Route: IV; Rate: 1 bm8 bolus; Site: right antecubital; 06:52 Follow up: Response: No adverse reaction; IV Status: Completed infusion; IV Intake: bm8 1000ml 03:37 Drug: Famotidine IVP 20 mg IVP once; dilute with 10 mL 0.9% NaCl; give over 2 minutes bm8 Route: IVP; Site: right antecubital; 05:58 Follow up: Response: No adverse reaction bm8 03:38 Drug: Ondansetron IVP 4 mg IVP once; over 2 minutes Route: IVP; Site: right antecubital;bm8 05:59 Follow up: Response: No adverse reaction bm8 03:38 Drug: morphine IVP or IV 4 mg IVP once over 4 mins Route: IVP; Infused Over: 4 mins; bm8 Site: right antecubital; 05:59 Follow up: Response: No adverse reaction bm8 04:22 Drug: NS 0.9% with KCl IV 20 mEq/L 1000 ml IV at 500 ml/hr continuous Route: IV; Rate: tm6 500 ml/hr; Site: right antecubital; 06:51 Follow up: Response: No adverse reaction; IV Status: Completed infusion; IV Intake: bm8 1000ml 04:22 Drug: Promethazine IVP 12.5 mg IVP once Route: IVP; Site: right antecubital; tm6 05:58 Follow up: Response: No adverse reaction bm8 05:58 Drug: Promethazine IVP 12.5 mg IVP once Route: IVP; Site: right antecubital; bm8 06:52 Follow up: Response: No adverse reaction bm8 Disposition Summary: 12/06/23 06:17 Discharge Ordered Notes: Location: Home efrem Problem: new efrem Symptoms: have improved efrem Condition: Stable efrem Diagnosis - Vomiting efrem - Diarrhea, unspecified efrem - Abdominal pain, Generalized efrem - Adverse effect of other drugs, medicaments and biological substances - MONJARO efrem Followup: efrem - With: Private Physician - When: 2 - 3 days - Reason: Recheck today's complaints, Continuance of care, Re-evaluation by your physician Followup: efrem - With: Gin Taveras MD - When: 2 - 3 days - Reason: Recheck today's complaints, Re-evaluation by your physician Discharge Instructions: - Discharge Summary Sheet efrem - Abdominal Pain, Adult efrem - Food Choices to Help Relieve Diarrhea, Adult efrem - Diarrhea, Adult efrem - Abdominal Pain, Adult, [id number] efrem - Diarrhea, Adult, [id number] efrem - Vomiting, Adult efrem - Gastroparesis efrem Forms: - Medication Reconciliation Form efrem - Antibiotic Education efrem - Prescription Opioid Use efrem - Patient Portal Instructions efrem - Leadership Thank You Letter [facility] Prescriptions: - ondansetron 4 mg Oral Tablet,disintegrating - take 1 tablet ORAL route every 6 hours as needed for nausea and vomiting; 20 efrem tablet; Refills: 0, Product Selection Permitted - promethazine 25 mg Rectal suppository - insert 1 suppository RECTAL route every 6 hours INTRACTABLE NAUSEA/VOMITING; 14 efrem suppository; Refills: 0, Product Selection Permitted - dicyclomine 20 mg Oral tablet - take 1 tablet ORAL route 4 times per day; 28 tablet; Refills: 0, Product efrem Selection Permitted Signatures: Dispatcher [employer] EDMario Gonsales MD MD cha Masterson, Tawney RN RN tm6 Ar Sheridan RN RN bm8 Corrections: (The following items were deleted from the chart) 03:18 03:18 Abdomen Pelvis W [id number] ordered. EDMS EDMS
[2023-12-06 06:19] LABS: Sqamous Epithelial <5 /HPF (None Seen); Urine Bacteria None Seen /HPF (<20); Urine Bilirubin NEGATIVE (Negative); Urine Blood Negative (Negative); Urine Clarity Clear (Clear); Urine Color Colorless (Yellow); Urine Culture Reflex Order NOT NEEDED; Urine Glucose NEGATIVE (Negative); Urine Ketones TRACE (Negative); Urine Microscopic Reflex YN ORDER UMIC; Urine Nitrite NEGATIVE (Negative); Urine Protein NEGATIVE (Negative); Urine Urobilinogen Normal (Normal); Urine WBC <5 /HPF (<5)
[2023-12-06 06:31] LABS: Specific Gravity > 1.030 (1.005-1.030)
[2023-12-06 07:26] VITALS: BP 151/96; TEMP 98.3; O2SAT 99
--- NOTE | 2023-12-06 17:54 | RAD REPORT ---
EXAM DESCRIPTION: CT Abdomen and Pelvis With Intravenous Contrast CLINICAL HISTORY: The patient is 38 years old and is Female; ABD PAIN TECHNIQUE: Axial computed tomography images of the abdomen and pelvis with intravenous contrast. S agittal and coronal reformatted images were created and reviewed. This CT exam was performed using one or more of the following dose reduction techniques: automated exposure control, adjustment of t he mA and/or kV according to patient size, and/or use of iterative reconstruction technique. COMPARISON: No relevant prior studies available. FINDINGS: Lung bases: Unremarkable. No mass. No consolidation. ABDOMEN: Liver: Unremarkable. No mass. Gallbladder and bile ducts: Unremarkable. No calcified stones. No ductal dilation. Pancreas: No findings to suggest acute pancreatitis. No mass visualized. No ductal dilation. Spleen: Unremarkable. No splenomegaly. Adrenals: Unremarkable. No mass. Kidneys and ureters: Unremarkable. No solid mass. No hydronephrosis. Stomach and bowel: Fluid in the lumen of the colon, suggesting diarrheal symptoms. No colon wal l thickening or pericolonic inflammation to suggest colitis. No bowel dilatation or obstruction. No bowel wall thickening. Air-fluid level in the stomach. No gastric wall thickening. PELVIS: Appendix: The visualized appendix is normal. No pericecal inflammation to suggest acute appendici tis. Bladder: Unremarkable. No mass. Reproductive: Left ovarian corpus luteum, 1.8 cm. Retroflexed uterus. Uterus and right ovary are otherwise unremarkable. ABDOMEN and PELVIS: Intraperitoneal space: Unremarkable. No free air. No significant fluid collection. Bones/joints: No acute fracture visualized. No dislocation. Soft tissues: Unremarkable. Vasculature: Unremarkable. No abdominal aortic aneurysm. Lymph nodes: No pathologically enlarged lymph nodes. IMPRESSION: Fluid in the lumen of the colon, suggesting diarrheal symptoms. No colon wall thickeni ng or pericolonic inflammation to suggest colitis. Electronically signed by: Ayana Stroud MD 12/06/2023 06:04 AM CDT RP ND Due to temporary technical issues with the PACS/Fluency reporting system, reports are being signed by the in house radiologists without review as a courtesy to insure prompt reporting. The interpreting radiologist is fully responsible for the content of the report.
== END 2023-12-06 06:52 | disposition home or self-care (01) ==
LOC: ER 03:09
DX: R11.10 Vomiting, unspecified (principal); R19.7 Diarrhea, unspecified; R10.84 Generalized abdominal pain; T50.995A Adverse effect of other drugs, medicaments and biological substances, initial encounter
CPT/HCPCS: 96361; 85025; 81001; 36415; 81025; 83690; 80053; 74177; 96375; 96374; 99284; Q9967; J2550 ×2; J2405; J7030; J3480